=== PATIENT | male | born 1985 | race Caucasian/White ===

== ENCOUNTER 2020-05-27 19:52 | Emergency (ER) | payer BC ==
[~2020-05-27] VITALS: Ht 177.8 cm; Wt 95.3 kg
[~2020-05-27 19:52] MED LIST: LIDEX0.05% T; PREDNICOT20 MG PO
[2020-05-27] MEDS ORDERED: CLARITIN10 MG PO (20:02)
== END 2020-05-28 12:58 | disposition still patient (30) ==
LOC: ED 19:52
DX: T18.128A Food in esophagus causing other injury, initial encounter (principal); Z79.899 Other long term (current) drug therapy; X58.XXXA Exposure to other specified factors, initial encounter; Y93.89 Activity, other specified; Y92.89 Other specified places as the place of occurrence of the external cause; Y99.8 Other external cause status

== ENCOUNTER → 2020-05-28 | Day surgery (SDC) | payer BC ==
[~2020-05-28] MED LIST changes: +CLARITIN10 MG PO
[2020-05-28 13:09] VITALS: BP 131/81
[2020-05-28 15:28] VITALS: BP 112/70
[2020-05-28 15:43] VITALS: BP 123/79
== END ==
LOC: SDC 12:58
PROVIDERS: ATTEND Internal Medicine Gastroenterology
DX: T18.128A Food in esophagus causing other injury, initial encounter (principal); K44.9 Diaphragmatic hernia without obstruction or gangrene; K29.70 Gastritis, unspecified, without bleeding; X58.XXXA Exposure to other specified factors, initial encounter; Y93.89 Activity, other specified; Y92.89 Other specified places as the place of occurrence of the external cause; Y99.8 Other external cause status